=== PATIENT | female | born 1940 | race Caucasian/White ===

== ENCOUNTER 2017-12-01 16:42 | Emergency (ER) | payer MEDICARE ==
[~2017-12-01] VITALS: Ht 170.2 cm; Wt 75.8 kg
[~2017-12-01 16:42] MED LIST: BUPR150T2 PO; CITA20 PO; CLON1 PO
[2017-12-01] MEDS ORDERED: Synthroid50 MCG (16:54)
[2017-12-01] MEDS ORDERED: PRAM.125 PO (16:54)
[2017-12-01 17:30] LABS: BASOPHILS ABSOLUTE AUTO 0.04 K/mm3 (0.00-0.23); BASOPHILS PERCENT AUTO 1 % (0-2); EOSINOPHILS ABSOLUTE AUTO 0.06 K/mm3 (0.00-0.68); EOSINOPHILS PERCENT AUTO 1 % (0-6); Hematocrit 39.9 % (33.0-51.0); Hemoglobin 12.6 g/dL (11.5-16.0); IMMATURE GRAN ABSOLUTE AUTO 0.01 K/mm3 (0.00-0.10); IMMATURE GRAN PERCENT AUTO 0 % (0-1); LYMPHOCYTES ABSOLUTE AUTO 1.55 K/mm3 (0.84-5.20); LYMPHOCYTES PERCENT AUTO 33 % (21-46); MONOCYTES ABSOLUTE AUTO 0.51 K/mm3 (0.16-1.47); MONOCYTES PERCENT AUTO 11 % (4-13); Mean Corpuscular HGB Conc 31.6 g/dL (31.5-36.5); Mean Corpuscular Volume 92 fL (80-100); Mean Platelet Volume 10.5 fL (9.1-12.4); NEUTROPHILS ABSOLUTE AUTO 2.51 K/mm3 (1.96-9.15); NEUTROPHILS PERCENT AUTO 54 % (41-73); Platelet Count 212 K/mm3 (150-400); RDW Coefficient Variation 13.4 % (11.7-14.2); RDW Standard Deviation 45.8 fL (35.1-46.3); Red Blood Cell Count 4.34 M/mm3 (3.80-5.20); White Blood Cell Count 4.68 K/mm3 (4.00-11.30)
[2017-12-01 17:52] LABS: Troponin I <0.015 ng/mL (0.000-0.040)
[2017-12-01 17:55] LABS: Alanine Aminotransfer (ALT/SGP 14 U/L (12-78); Albumin, Blood 3.7 g/dL (3.4-5.0); Alk Phos 88 U/L (50-136); Aspartate Aminotrans (AST/SGOT 20 U/L (12-37); Bilirubin, Total 0.3 mg/dL (0.1-1.0); Blood Urea Nitrogen 19 mg/dL (8-24); Bun/Creatinine Ratio 21.2 (12.0-20.0); CO2, Blood 26 mmol/L (21-32); Calcium, Blood 8.8 mg/dL (8.5-10.1); Globulin, Blood 3.7 g/dL (2.2-4.0); Glomerular Filtration Rate >60 (60-); Glucose, Blood 88 mg/dL (70-99); Total Protein, Blood 7.4 g/dL (6.4-8.2)
[2017-12-01 18:34] LABS: Anion Gap 10 mmol/L (6-16); Chloride, Blood 106 mmol/L (98-108); Potassium, Blood 4.2 mmol/L (3.5-5.5); Sodium, Blood 142 mmol/L (136-145)
== END 2017-12-01 21:19 | disposition home or self-care (01) ==
LOC: ER 16:42
PROVIDERS: Emergency Medicine
DX: R07.9 Chest pain, unspecified (principal); E78.5 Hyperlipidemia, unspecified; E03.9 Hypothyroidism, unspecified; F32.9 Major depressive disorder, single episode, unspecified; Z79.899 Other long term (current) drug therapy
CPT/HCPCS: 36415; 71046; 80053; 83880; 84484; 85025; 93005; 93010; 99285-25

== ENCOUNTER 2018-01-08 06:06 | Day surgery (SDC) | payer MEDICARE ==
[2018-01-07 10:19] LABS: BASOPHILS ABSOLUTE AUTO 0.07 K/mm3 (0.00-0.23); BASOPHILS PERCENT AUTO 1 % (0-2); EOSINOPHILS ABSOLUTE AUTO 0.17 K/mm3 (0.00-0.68); EOSINOPHILS PERCENT AUTO 3 % (0-6); Hematocrit 40.4 % (33.0-51.0); Hemoglobin 13.1 g/dL (11.5-16.0); IMMATURE GRAN ABSOLUTE AUTO 0.04 K/mm3 (0.00-0.10); IMMATURE GRAN PERCENT AUTO 1 % (0-1); LYMPHOCYTES PERCENT AUTO 25 % (21-46); MONOCYTES ABSOLUTE AUTO 0.66 K/mm3 (0.16-1.47); MONOCYTES PERCENT AUTO 11 % (4-13); Mean Corpuscular HGB 29.5 pg (26.0-34.0); Mean Corpuscular HGB Conc 32.4 g/dL (31.5-36.5); Mean Corpuscular Volume 91 fL (80-100); Mean Platelet Volume 10.7 fL (9.1-12.4); NEUTROPHILS ABSOLUTE AUTO 3.76 K/mm3 (1.96-9.15); NEUTROPHILS PERCENT AUTO 60 % (41-73); Platelet Count 201 K/mm3 (150-400); RDW Coefficient Variation 13.2 % (11.7-14.2); RDW Standard Deviation 44.4 fL (35.1-46.3); Red Blood Cell Count 4.44 M/mm3 (3.80-5.20)
[2018-01-07 10:32] LABS: International Normalized Ratio 0.97
[2018-01-07 10:49] LABS: Bun/Creatinine Ratio 20.4 (12.0-20.0); Calcium, Blood 8.3 mg/dL (8.5-10.1); Creatinine, Blood 1.03 mg/dL (0.40-1.00); Potassium, Blood 4.3 mmol/L (3.5-5.5)
[~2018-01-08] VITALS: Ht 170.2 cm; Wt 77.0 kg
[~2018-01-08 06:06] MED LIST changes: +ATOR40TA PO; +Aspirin EC81 MG PO; +CLOP75 PO; +ESCI20 PO; +ISOMON20 PO; +METO25 PO; +NIACIN ER500 MG PO; +Nitroglycerin0.4 MG SL; +PRAM.125 PO; +Synthroid50 MCG
[2018-01-08] MEDS ORDERED: MAGOXI400 PO (06:40)
[2018-01-08] MEDS ORDERED: CLON.5 PO (06:40)
== END 2018-01-08 11:05 | disposition home or self-care (01) ==
LOC: MHTC 06:06
PROC: B2111ZZ Fluoroscopy of Multiple Coronary Arteries using Low Osmolar Contrast (ICD-10-PCS; principal; 2018-01-08)
DX: I25.119 Atherosclerotic heart disease of native coronary artery with unspecified angina pectoris (principal); G20 Parkinson's disease; I10 Essential (primary) hypertension; E78.5 Hyperlipidemia, unspecified; G89.29 Other chronic pain; M54.5 Low back pain; Z79.899 Other long term (current) drug therapy; Z79.82 Long term (current) use of aspirin; Z88.8 Allergy status to other drugs, medicaments and biological substances
CPT/HCPCS: 36415; 80048; 85025; 85610; 93454; 99152; 99153; C1769; C1894; J1644; J2250; J3010; J7030; Q9967

== ENCOUNTER 2018-06-04 18:49 | Emergency (ER) | payer MEDICARE ==
[~2018-06-04] VITALS: Ht 170.2 cm; Wt 76.2 kg
[~2018-06-04 18:49] MED LIST changes: +BUPR150ER PO; +CLON.5 PO; +FURO40 PO; +HYDR1TAB94 PO; +Hydrocodone-Ap1 EA23 PO; +LATANOPROST2.5 ML; +MAGOXI400 PO; +POTASSIUM CHLO20 MEQ PO; +PRAM.5 PO; +VITAMINS
[2018-06-04 19:25] LABS: BASOPHILS ABSOLUTE AUTO 0.05 K/mm3 (0.00-0.23); BASOPHILS PERCENT AUTO 1 % (0-2); EOSINOPHILS ABSOLUTE AUTO 0.12 K/mm3 (0.00-0.68); EOSINOPHILS PERCENT AUTO 2 % (0-6); Hematocrit 39.1 % (33.0-51.0); Hemoglobin 12.5 g/dL (11.5-16.0); IMMATURE GRAN ABSOLUTE AUTO 0.01 K/mm3 (0.00-0.10); IMMATURE GRAN PERCENT AUTO 0 % (0-1); LYMPHOCYTES ABSOLUTE AUTO 1.47 K/mm3 (0.84-5.20); LYMPHOCYTES PERCENT AUTO 28 % (21-46); MONOCYTES ABSOLUTE AUTO 0.57 K/mm3 (0.16-1.47); MONOCYTES PERCENT AUTO 11 % (4-13); Mean Corpuscular HGB 29.4 pg (26.0-34.0); Mean Corpuscular Volume 92 fL (80-100); Mean Platelet Volume 10.6 fL (9.1-12.4); NEUTROPHILS ABSOLUTE AUTO 3.06 K/mm3 (1.96-9.15); NEUTROPHILS PERCENT AUTO 58 % (41-73); Platelet Count 188 K/mm3 (150-400); RDW Coefficient Variation 14.4 % (11.7-14.2); RDW Standard Deviation 48.4 fL (35.1-46.3); Red Blood Cell Count 4.25 M/mm3 (3.80-5.20); White Blood Cell Count 5.28 K/mm3 (4.00-11.30)
[2018-06-04 19:55] LABS: Alanine Aminotransfer (ALT/SGP 18 U/L (12-78); Albumin, Blood 3.9 g/dL (3.4-5.0); Albumin/Globulin Ratio 1.1 (0.8-1.8); Alk Phos 91 U/L (50-136); Anion Gap 6 mmol/L (6-16); Aspartate Aminotrans (AST/SGOT 22 U/L (12-37); Bilirubin, Total 0.3 mg/dL (0.1-1.0); Blood Urea Nitrogen 22 mg/dL (8-24); Bun/Creatinine Ratio 23.4 (12.0-20.0); CO2, Blood 27 mmol/L (21-32); Calcium, Blood 8.7 mg/dL (8.5-10.1); Chloride, Blood 109 mmol/L (98-108); Creatinine, Blood 0.94 mg/dL (0.40-1.00); Globulin, Blood 3.5 g/dL (2.2-4.0); Glomerular Filtration Rate >60 (60-); Glucose, Blood 105 mg/dL (70-99); Potassium, Blood 3.9 mmol/L (3.5-5.5); Sodium, Blood 142 mmol/L (136-145); Total Protein, Blood 7.4 g/dL (6.4-8.2)
== END 2018-06-04 22:40 | disposition home or self-care (01) ==
LOC: ER 18:49
PROVIDERS: Emergency Medicine
DX: R07.9 Chest pain, unspecified (principal); Z88.8 Allergy status to other drugs, medicaments and biological substances; Z79.899 Other long term (current) drug therapy; Z79.82 Long term (current) use of aspirin; G20 Parkinson's disease
CPT/HCPCS: 36415; 71046; 80053; 84484; 85025; 93005; 93010; 99285-25

== ENCOUNTER 2018-12-11 16:14 | Emergency (ER) | payer MEDICARE ==
[~2018-12-11] VITALS: Ht 170.2 cm; Wt 76.7 kg
== END 2018-12-11 19:40 | disposition home or self-care (01) ==
LOC: ER 16:14
DX: S01.01XA Laceration without foreign body of scalp, initial encounter (principal); S10.93XA Contusion of unspecified part of neck, initial encounter; G20 Parkinson's disease; W18.30XA Fall on same level, unspecified, initial encounter
CPT/HCPCS: 12002; 70450; 72125; 90471; 90714; 99283-25

== ENCOUNTER 2020-01-05 15:09 | Emergency (ER) | payer OTHER ==
[~2020-01-05] VITALS: Ht 170.2 cm; Wt 73.0 kg
[2020-01-05 15:38] LABS: BASOPHILS ABSOLUTE AUTO 0.04 K/mm3 (0.00-0.23); BASOPHILS PERCENT AUTO 1 % (0-2); EOSINOPHILS ABSOLUTE AUTO 0.06 K/mm3 (0.00-0.68); EOSINOPHILS PERCENT AUTO 1 % (0-6); Hematocrit 39.1 % (33.0-51.0); Hemoglobin 12.5 g/dL (11.5-16.0); IMMATURE GRAN ABSOLUTE AUTO 0.02 K/mm3 (0.00-0.10); IMMATURE GRAN PERCENT AUTO 0 % (0-1); LYMPHOCYTES ABSOLUTE AUTO 1.16 K/mm3 (0.84-5.20); LYMPHOCYTES PERCENT AUTO 19 % (21-46); MONOCYTES ABSOLUTE AUTO 0.82 K/mm3 (0.16-1.47); MONOCYTES PERCENT AUTO 14 % (4-13); Mean Corpuscular HGB 30.5 pg (26.0-34.0); Mean Corpuscular Volume 95 fL (80-100); Mean Platelet Volume 11.7 fL (9.1-12.4); NEUTROPHILS ABSOLUTE AUTO 3.97 K/mm3 (1.96-9.15); NEUTROPHILS PERCENT AUTO 65 % (41-73); Platelet Count 153 K/mm3 (150-400); RDW Standard Deviation 45.8 fL (35.1-46.3); White Blood Cell Count 6.07 K/mm3 (4.00-11.30)
[2020-01-05 16:13] LABS: Alanine Aminotransfer (ALT/SGP 15 U/L (12-78); Albumin, Blood 3.4 g/dL (3.4-5.0); Alk Phos 89 U/L (50-136); Anion Gap 4 mmol/L (6-16); Aspartate Aminotrans (AST/SGOT 17 U/L (12-37); Bilirubin, Total 0.6 mg/dL (0.1-1.0); Blood Urea Nitrogen 26 mg/dL (8-24); Bun/Creatinine Ratio 24.8 (12.0-20.0); CO2, Blood 28 mmol/L (21-32); Calcium, Blood 8.7 mg/dL (8.5-10.1); Chloride, Blood 110 mmol/L (98-108); Creatinine, Blood 1.05 mg/dL (0.40-1.00); Globulin, Blood 3.3 g/dL (2.2-4.0); Glomerular Filtration Rate 54 (60-); Glucose, Blood 108 mg/dL (70-99); Potassium, Blood 4.3 mmol/L (3.5-5.5); Sodium, Blood 142 mmol/L (136-145); Total Protein, Blood 6.7 g/dL (6.4-8.2); Troponin I <0.015 ng/mL (0.000-0.040)
== END 2020-01-05 18:21 | disposition home or self-care (01) ==
LOC: ER 15:09
PROVIDERS: Physician Assistant
DX: R07.9 Chest pain, unspecified (principal); Z88.8 Allergy status to other drugs, medicaments and biological substances; Z79.82 Long term (current) use of aspirin; Z79.899 Other long term (current) drug therapy; G20 Parkinson's disease
CPT/HCPCS: 36415; 71046; 80053; 84484; 85025; 93005; 93010; 99285-25

== ENCOUNTER 2020-11-14 17:40 | Observation (INO) | payer OTHER ==
[~2020-11-14] VITALS: Ht 170.2 cm; Wt 74.5 kg
[~2020-11-14 17:40] MED LIST changes: -LATANOPROST2.5 ML; +LATANOPROST2.5 ML BOTHEYES; +LEVSOD75 PO; -Synthroid50 MCG
[2020-11-14] MEDS ORDERED: CLOP75 PO (18:07)
[2020-11-14 18:27] LABS: BASOPHILS ABSOLUTE AUTO 0.03 K/mm3 (0.00-0.23); BASOPHILS PERCENT AUTO 1 % (0-2); EOSINOPHILS ABSOLUTE AUTO 0.11 K/mm3 (0.00-0.68); EOSINOPHILS PERCENT AUTO 2 % (0-6); Hemoglobin 12.8 g/dL (11.5-16.0); IMMATURE GRAN ABSOLUTE AUTO 0.03 K/mm3 (0.00-0.10); IMMATURE GRAN PERCENT AUTO 1 % (0-1); LYMPHOCYTES ABSOLUTE AUTO 1.24 K/mm3 (0.84-5.20); LYMPHOCYTES PERCENT AUTO 20 % (21-46); MONOCYTES ABSOLUTE AUTO 0.62 K/mm3 (0.16-1.47); MONOCYTES PERCENT AUTO 10 % (4-13); Mean Corpuscular HGB 30.2 pg (26.0-34.0); Mean Corpuscular HGB Conc 32.8 g/dL (31.5-36.5); Mean Corpuscular Volume 92 fL (80-100); Mean Platelet Volume 12.6 fL (9.1-12.4); NEUTROPHILS ABSOLUTE AUTO 4.18 K/mm3 (1.96-9.15); NEUTROPHILS PERCENT AUTO 67 % (41-73); Platelet Count 141 K/mm3 (150-400); RDW Coefficient Variation 13.2 % (11.7-14.2); RDW Standard Deviation 44.5 fL (35.1-46.3); Red Blood Cell Count 4.24 M/mm3 (3.80-5.20); White Blood Cell Count 6.21 K/mm3 (4.00-11.30)
[2020-11-14 18:43] LABS: Alanine Aminotransfer (ALT/SGP 11 U/L (12-78); Albumin, Blood 3.4 g/dL (3.4-5.0); Alk Phos 84 U/L (50-136); Anion Gap 6 mmol/L (6-16); Aspartate Aminotrans (AST/SGOT 17 U/L (12-37); Bilirubin, Total 0.5 mg/dL (0.1-1.0); Blood Urea Nitrogen 23 mg/dL (8-24); Bun/Creatinine Ratio 21.7 (12.0-20.0); CO2, Blood 28 mmol/L (21-32); Calcium, Blood 8.6 mg/dL (8.5-10.1); Chloride, Blood 108 mmol/L (98-108); Creatinine, Blood 1.06 mg/dL (0.40-1.00); Globulin, Blood 3.4 g/dL (2.2-4.0); Glomerular Filtration Rate 53 (60-); Glucose, Blood 121 mg/dL (70-99); Potassium, Blood 4.3 mmol/L (3.5-5.5); Sodium, Blood 142 mmol/L (136-145); Total Protein, Blood 6.8 g/dL (6.4-8.2); Troponin I <0.015 ng/mL (0.000-0.040)
[2020-11-14] MEDS ORDERED: SYNTHROID50 MC2 PO (19:23)
[2020-11-14] MEDS ORDERED: PRAMIPEXOLE0.125 M1 PO (19:24)
[2020-11-14] MEDS ORDERED: CLON.5 PO (19:24)
[2020-11-14] MEDS ORDERED: BUPR150ER PO ×2 (19:25→23:32)
[2020-11-14] MEDS ORDERED: NITR.4SL SL (19:26)
[2020-11-14] MEDS ORDERED: MIRALAX17 GM PO (21:09)
[2020-11-14] MEDS ORDERED: Norco 5-325 Ta1 EACH PO (23:29)
[2020-11-14] MEDS ORDERED: ATOR40TA PO (23:30)
[2020-11-14] MEDS ORDERED: POTA10T PO (23:31)
[2020-11-14] MEDS ORDERED: FURO40 PO (23:33)
[2020-11-14] MEDS ORDERED: ESCI20 PO (23:33)
[2020-11-15 01:37] LABS: BASOPHILS ABSOLUTE AUTO 0.05 K/mm3 (0.00-0.23); BASOPHILS PERCENT AUTO 1 % (0-2); EOSINOPHILS ABSOLUTE AUTO 0.15 K/mm3 (0.00-0.68); EOSINOPHILS PERCENT AUTO 2 % (0-6); Hematocrit 40.3 % (33.0-51.0); IMMATURE GRAN ABSOLUTE AUTO 0.02 K/mm3 (0.00-0.10); IMMATURE GRAN PERCENT AUTO 0 % (0-1); LYMPHOCYTES ABSOLUTE AUTO 1.54 K/mm3 (0.84-5.20); LYMPHOCYTES PERCENT AUTO 21 % (21-46); MONOCYTES ABSOLUTE AUTO 0.68 K/mm3 (0.16-1.47); MONOCYTES PERCENT AUTO 9 % (4-13); Mean Corpuscular HGB 29.7 pg (26.0-34.0); Mean Corpuscular HGB Conc 32.3 g/dL (31.5-36.5); Mean Corpuscular Volume 92 fL (80-100); NEUTROPHILS ABSOLUTE AUTO 4.77 K/mm3 (1.96-9.15); NEUTROPHILS PERCENT AUTO 66 % (41-73); Platelet Count 139 K/mm3 (150-400); RDW Coefficient Variation 13.2 % (11.7-14.2); RDW Standard Deviation 44.5 fL (35.1-46.3); Red Blood Cell Count 4.38 M/mm3 (3.80-5.20); White Blood Cell Count 7.21 K/mm3 (4.00-11.30)
[2020-11-15 01:58] LABS: Albumin, Blood 3.2 g/dL (3.4-5.0); Bilirubin, Total 0.5 mg/dL (0.1-1.0); Bun/Creatinine Ratio 22.5 (12.0-20.0); Calcium, Blood 8.2 mg/dL (8.5-10.1); Creatinine, Blood 0.98 mg/dL (0.40-1.00); Globulin, Blood 3.3 g/dL (2.2-4.0); Potassium, Blood 3.5 mmol/L (3.5-5.5); Total Protein, Blood 6.5 g/dL (6.4-8.2)
[2020-11-15 02:05] LABS: CPK Creatine Kinase 48 U/L (26-193); Troponin I <0.015 ng/mL (0.000-0.040)
--- NOTE | 2020-11-15 06:21 | NUR ---
SUMMARY PT ARRIVED TO FLOOR IN NO DISTRESS. PT HAS REPORTED SOME CX PRESSURE. PT PRIMARY COMPLAINT IS RIGHT SHOULDER PAIN FROM UNKNOWN TIME INJURY. PT DENIES SOB. PT HAS BEEN TX FOR DISCOMFORT PER EMAR W/ RELIEF. PT CURRENTLY AWAKE IN NO DISTRESS. CALL LIGHT IN REACH.
[2020-11-15 11:15] LABS: CPK Creatine Kinase 52 U/L (26-193); Troponin I <0.015 ng/mL (0.000-0.040)
--- NOTE | 2020-11-15 16:46 | NUR ---
Echocardiogram completed.
--- NOTE | 2020-11-15 17:58 | NUR ---
SHIFT SUMMARY- PT IS A/O, PLESANT AND COOPERATIVE. SHE IS EATING AND DRINKING WELL. SHE WILL RECIEVE A CARDIAC STRESS TEST TOMORROW. CARDIOLOGY WAS CONSULTED. SHE IS AMBULATING TO THE RESTROOM. HER BED IS IN THE LOW POSTION AND CALL LIGHT IS WITHIN REACH.
--- NOTE | 2020-11-16 05:20 | NUR ---
SUMMARY PT DENIES CX PAIN OR SOB. PT CONTINUES TO C/O R SHOULDER DISCOMFORT. PT HAD UNEVENTFUL NIGHT. PT HAS BEEN NPO SINCE 0000HRS. PT CURRENTLY SLEEPING IN NO DISTRESS. CALL LIGHT IN REACH.
--- NOTE | 2020-11-16 14:02 | NUR ---
PT CALLED STATING SHE IS FEELING 7/10 SHARP HEAVY CHEST PAIN LOCATED UNDER HER LEFT BREAST. NITRO X3 AND FENTANYL PROVIDED AT THIS TIME. PT DENIES ANY RADIATING, NAUSEA, OR SOB. VS ARE STABLE. CRISTY UPDATED, STAT EKG AND TROPONIN ORDERED. WILL UPDATE CRISTY NEEDED AND CONTINUE TO MONITOR PT. CHARGE NURSES AWARE.
--- NOTE | 2020-11-16 17:17 | NUR ---
SHIFT SUMMARY PT A&O, COOPERATIVE c CARE, VSS, AMBULATING WELL. PT DID REPORT CHEST PAIN THIS AFTERNOON AND WAS TREATED ACCORDINGLY (SEE PREVIOUS NOTE). PT IS NO LONGER EXPERIENCING THIS PAIN. PT DOES REPORT R SHOULDER PAIN, X RAY ORDERED AND TO BE COMPLETED. FIRST PORTION OF STRESS TEST COMPLETED THIS AM, 2ND PART TO BE DONE TOMORROW. PT MAY EAT BREAKFAST ON 11/17/20 BUT NEEDS TO BE NPO AFTER THAT. IMDUR ALSO NEEDS TO BE HELD 11/17/20. PT IS CURRENTLY RESTING IN BED VISITING c HER DAUGHTER. CALL LIGHT WITHIN REACH AND CALLS APPROPRIATELY.
[2020-11-17] MEDS ORDERED: Isosorbide Mono30 MG PO (17:58)
--- NOTE | 2020-11-17 18:10 | NUR ---
DISCHARGE SUMMARY PT DISCHARGED @ APPROX 1810 VIA WHEELCHAIR BY DALIA. DISCHARGE INSTRUCTIONS REVIEWED c PT, STATED TO PT IT IS IMPORTANT TO CALL FRIDAY TO MAKE FOLLOW UP APPOINTMENTS SINCE OFFICES WERE CLOSED. PT STATES SHE ALREADY HAS AN APPOINTMENT WITH CARIDOLOGIST. PT HAD NO FURTHER QUESTIONS AT THIS TIME, NEW MEDS REVIEWED AND FAXED TO PREFERRED PHARMACY. IV REMOVED AND SITE APPEAR WNL.
== END 2020-11-17 18:20 | disposition home or self-care (01) ==
LOC: ER 17:40 → ERHOLD 17:41 → MEDS 17:41
PROVIDERS: Emergency Medicine; ADMIT Internal Medicine
DX: R07.89 Other chest pain (principal); I25.10 Atherosclerotic heart disease of native coronary artery without angina pectoris; M77.8 Other enthesopathies, not elsewhere classified; G20 Parkinson's disease; E03.9 Hypothyroidism, unspecified; E78.5 Hyperlipidemia, unspecified; D69.6 Thrombocytopenia, unspecified; I25.2 Old myocardial infarction; F32.9 Major depressive disorder, single episode, unspecified; Z95.1 Presence of aortocoronary bypass graft; Z88.8 Allergy status to other drugs, medicaments and biological substances; Z79.82 Long term (current) use of aspirin; Z79.02 Long term (current) use of antithrombotics/antiplatelets
CPT/HCPCS: 36415; 71045; 73030; 78452; 80053; 82550; 84484; 85025; 93005; 93010; 93017; 93308; 93321; 96372; 96374; 96376; 99285-25; A9270; A9500; G0378; J0706; J1650; J2785; J3010; J7030

== ENCOUNTER 2021-04-20 17:23 | Inpatient (IN) | payer OTHER ==
[~2021-04-20] VITALS: Ht 170.2 cm; Wt 75.9 kg
[~2021-04-20 17:23] MED LIST changes: +Isosorbide Mono30 MG PO; +MIRALAX17 GM PO; +NITR.4SL SL; +Norco 5-325 Ta1 EACH PO; +POTA10T PO; +PRAMIPEXOLE0.125 M1 PO; +SYNTHROID50 MC2 PO
[2021-04-20 17:51] LABS: BASOPHILS ABSOLUTE AUTO 0.05 K/mm3 (0.00-0.23); BASOPHILS PERCENT AUTO 1 % (0-2); EOSINOPHILS ABSOLUTE AUTO 0.04 K/mm3 (0.00-0.68); EOSINOPHILS PERCENT AUTO 1 % (0-6); Hematocrit 40.7 % (33.0-51.0); Hemoglobin 13.2 g/dL (11.5-16.0); IMMATURE GRAN ABSOLUTE AUTO 0.01 K/mm3 (0.00-0.10); IMMATURE GRAN PERCENT AUTO 0 % (0-1); LYMPHOCYTES ABSOLUTE AUTO 1.23 K/mm3 (0.84-5.20); LYMPHOCYTES PERCENT AUTO 28 % (21-46); MONOCYTES ABSOLUTE AUTO 0.57 K/mm3 (0.16-1.47); MONOCYTES PERCENT AUTO 13 % (4-13); Mean Corpuscular HGB 30.2 pg (26.0-34.0); Mean Corpuscular HGB Conc 32.4 g/dL (31.5-36.5); Mean Corpuscular Volume 93 fL (80-100); Mean Platelet Volume 11.6 fL (9.1-12.4); NEUTROPHILS ABSOLUTE AUTO 2.58 K/mm3 (1.96-9.15); NEUTROPHILS PERCENT AUTO 58 % (41-73); Platelet Count 163 K/mm3 (150-400); RDW Coefficient Variation 12.5 % (11.7-14.2); RDW Standard Deviation 43.4 fL (35.1-46.3); Red Blood Cell Count 4.37 M/mm3 (3.80-5.20); White Blood Cell Count 4.48 K/mm3 (4.00-11.30)
[2021-04-20 18:17] LABS: Alanine Aminotransfer (ALT/SGP 13 U/L (12-78); Albumin, Blood 3.4 g/dL (3.4-5.0); Albumin/Globulin Ratio 1.1 (0.8-1.8); Alk Phos 78 U/L (50-136); Anion Gap 5 mmol/L (6-16); Aspartate Aminotrans (AST/SGOT 22 U/L (12-37); Bilirubin, Total 0.4 mg/dL (0.1-1.0); Blood Urea Nitrogen 20 mg/dL (8-24); Bun/Creatinine Ratio 23.8 (12.0-20.0); CO2, Blood 27 mmol/L (21-32); Calcium, Blood 8.6 mg/dL (8.5-10.1); Chloride, Blood 110 mmol/L (98-108); Creatinine, Blood 0.84 mg/dL (0.40-1.00); Glomerular Filtration Rate >60 (60-); Glucose, Blood 94 mg/dL (70-99); Potassium, Blood 4.2 mmol/L (3.5-5.5); Sodium, Blood 142 mmol/L (136-145); Total Protein, Blood 6.4 g/dL (6.4-8.2)
[2021-04-20 18:31] LABS: Influenza A, PCR NEGATIVE (NEGATIVE); Influenza B, PCR NEGATIVE (NEGATIVE); Resp Syncytial Virus, PCR NEGATIVE (NEGATIVE); SARS-Cov-2 (COVID-19) PCR, MMC NEGATIVE (NEGATIVE)
[2021-04-20 21:04] LABS: Anti-Xa UFH, PHA Monitoring <0.10 IU/mL; Prothrombin Time Results 10.5 Sec (9.7-11.5)
--- NOTE | 2021-04-20 22:30 | NUR ---
ASSUMED CARE OF PATIENT AT 2140, ADMIT FROM ER. TELEMETRY NSR 60-70'S WITH AUDIBLE S3. +2 RADIALS BL, +1 PEDALS BL. TROP TRENDING UP FROM 0.070 TO 0.121. CP 5/10 RELIEVED TO 1/10 WITH 3RD NITRO. URINARY FREQUENCY AND SOME INCONTINENCE CHRONIC FOR PATIENT. PATIENTS MAP AROUND 65-75. HEPARIN BOLUS GIVEN AND HEPARIN NOW RUNNING AT 15U/KG/HR PER PHARMACY. PATIENTS VIPUL GAONA AT BEDSIDE. WILL UPDATE CHANGES OCCUR.
[2021-04-20 23:07] LABS: CHOL/HDL RATIO 2.9; Cholesterol 125 mg/dL (50-200); HDL Cholesterol 43 mg/dL (>39); LDL/HDL RATIO 1.2; Low Density Lipoprotein Chol 53 mg/dL (0-110); Triglycerides 145 mg/dL (30-160); Very Low Density Lipoprot Chol 29 mg/dL (6-32)
[2021-04-21 04:25] LABS: BASOPHILS ABSOLUTE AUTO 0.05 K/mm3 (0.00-0.23); BASOPHILS PERCENT AUTO 1 % (0-2); EOSINOPHILS ABSOLUTE AUTO 0.07 K/mm3 (0.00-0.68); EOSINOPHILS PERCENT AUTO 1 % (0-6); Hematocrit 37.8 % (33.0-51.0); Hemoglobin 12.4 g/dL (11.5-16.0); IMMATURE GRAN ABSOLUTE AUTO 0.01 K/mm3 (0.00-0.10); IMMATURE GRAN PERCENT AUTO 0 % (0-1); LYMPHOCYTES ABSOLUTE AUTO 1.73 K/mm3 (0.84-5.20); LYMPHOCYTES PERCENT AUTO 32 % (21-46); MONOCYTES ABSOLUTE AUTO 0.66 K/mm3 (0.16-1.47); MONOCYTES PERCENT AUTO 12 % (4-13); Mean Corpuscular HGB 30.2 pg (26.0-34.0); Mean Corpuscular HGB Conc 32.8 g/dL (31.5-36.5); Mean Corpuscular Volume 92 fL (80-100); Mean Platelet Volume 11.6 fL (9.1-12.4); NEUTROPHILS ABSOLUTE AUTO 2.91 K/mm3 (1.96-9.15); NEUTROPHILS PERCENT AUTO 54 % (41-73); Platelet Count 145 K/mm3 (150-400); RDW Coefficient Variation 12.7 % (11.7-14.2); RDW Standard Deviation 43.2 fL (35.1-46.3); White Blood Cell Count 5.43 K/mm3 (4.00-11.30)
[2021-04-21 04:48] LABS: Alanine Aminotransfer (ALT/SGP 15 U/L (12-78); Albumin, Blood 3.1 g/dL (3.4-5.0); Albumin/Globulin Ratio 1.1 (0.8-1.8); Alk Phos 69 U/L (50-136); Anion Gap 5 mmol/L (6-16); Aspartate Aminotrans (AST/SGOT 14 U/L (12-37); Bilirubin, Total 0.3 mg/dL (0.1-1.0); Blood Urea Nitrogen 23 mg/dL (8-24); Bun/Creatinine Ratio 26.4 (12.0-20.0); CO2, Blood 27 mmol/L (21-32); Calcium, Blood 8.7 mg/dL (8.5-10.1); Chloride, Blood 113 mmol/L (98-108); Creatinine, Blood 0.87 mg/dL (0.40-1.00); Globulin, Blood 2.9 g/dL (2.2-4.0); Glomerular Filtration Rate >60 (60-); Glucose, Blood 79 mg/dL (70-99); Potassium, Blood 3.9 mmol/L (3.5-5.5); Sodium, Blood 145 mmol/L (136-145)
--- NOTE | 2021-04-21 17:25 | NUR ---
PT DENIES CP AT THIS TIME, PT A/O X4 ANSWERING QUESTIONS APPROPRIATELY. PT WILL GO FOR ANGIO IN THE AM AWARE THAT SHE WILL BE NPO AFTER SUNDEEP LUGO. HEPARIN INFUSING CONTINUES AT THIS TIME. PT SBA TO BATHROOM AND BACK TO BED WITHOUT ISSUES. LS DIM/CLEAR T/O.
--- NOTE | 2021-04-22 03:10 | NUR ---
ASSUMED CARE OF PATIENT AT 1900/ A/OX4. NO CP/PRESSURE. TELEMETRY NSR 60'S. HEPARIN GTT AT 10U/KG/HR. NPO AT MIDNIGHT. PATIENT STATES SHE FEELS "BACKED UP" AND WOULD LIKE AN ENEMA. ORDER WAS OBTAINED BUT WAS INFORMED PT HAS HEMORRHOIDS AND IS ON HEPARIN GTT. EXPLAINED THE RISK OF BLEEDING TO PATIENT AND SHE AGREED TO WAIT UNTIL BLEEDING ISN'T BIG OF A CONCERN. WILL UPDATE CHANGES OCCUR.
--- NOTE | 2021-04-22 19:28 | NUR ---
SHIFT SUMMARY PT A&Ox4; CALM AND COOPERATIVE WITH CARE. PT RESTING IN BED, UP WITH SBA IN ROOM. PT TO TAIL END RIDER THIS AM; RETURNED TO ROOM WITH RIGHT GROIN SITE; NO BRUISING, BLEEDING OR HEMATOMA NOTED; RECEOVERED PER ORDERS. PT DENIES PAIN, CHEST PAIN, NAUSEA AND DIZZINESS T/O SHIFT. PT REPORTS CONSTIPATION, REQUESTING ENEMA, REPROTS HAVING HEMORRHOIDS; NOTIFIED DR TATUM, NEW ORDER FOR SUPPOSITORY. VSS. NO OTHER ACUTE CHANGES NOTED. REPORT GIVEN TO ONCOMING RN.
--- NOTE | 2021-04-23 00:06 | NUR ---
ASSUMED CARE OF PT AT 1900. A/OX4. DENIES ANY CP/PRESSURE. SINUS MEAGHAN ON MONITOR WITH +2 RADIALS AND +1 PEDAL PULSES BL. R FEM SITE C/D/I. ABDOMEN IS TENDER AND HYPOACTIVE, REFLECTING CURRENT COMPLAINT OF CONSTIPATION. PRN SUPPOSITORY GIVEN WITH MILD RESULTS OF A FEW HARD PELLETS. MAINTAINS OVER 95% ON RA, CLEAR LS. WILL UPDATES CHANGES OCCUR.
[2021-04-23] MEDS ORDERED: ASPI81CH PO (10:44)
[2021-04-23] MEDS ORDERED: METO25ER PO (10:44)
--- NOTE | 2021-04-23 13:17 | NUR ---
DISCHARGE NOTE PT A&Ox4; CALM AND COOPERATIVE WITH CARE. PT RESTING IN BED DUIRNG SHIFT. UP IN ROOM IND. PT DENIES PAIN, CHEST PAIN, NAUSEA AND DIZZINESS. RIGHT GROIN SITE C/D/I; NO BRUISING, BLEEDING OR HEMATOMA NOTED. VSS. NO OTHER ACUTE CHANGES NOTED. EDUCATED PT ON DISCHARGE INSTRUCTIONS, FOLLOW UP APPOINTMENTS, WOUND CARE AND MEDICATIONS. PRESCRIPTIONS CALLED TO [facility]; ENCOURAGED THEM TO CALL PRIOR TO GOING IN TO UNSURE PRESCRIPTIONS ARE READY. PT LEFT VIA WHEELCHAIR AT APPRXI 1225.
== END 2021-04-23 12:42 | disposition home or self-care (01) | DRG 282 ==
LOC: ER 17:23 → PCU 20:45
PROVIDERS: Emergency Medicine; Student in an Organized Health Care Education/Training Program; ADMIT Internal Medicine
PROC: 3E02340 Introduction of Influenza Vaccine into Muscle, Percutaneous Approach (ICD-10-PCS; 2021-04-20)
PROC: B2181ZZ Fluoroscopy of Left Internal Mammary Bypass Graft using Low Osmolar Contrast (ICD-10-PCS; principal; 2021-04-22)
PROC: B2111ZZ Fluoroscopy of Multiple Coronary Arteries using Low Osmolar Contrast (ICD-10-PCS; 2021-04-22)
PROC: B2121ZZ Fluoroscopy of Single Coronary Artery Bypass Graft using Low Osmolar Contrast (ICD-10-PCS; 2021-04-22)
DX: I21.4 Non-ST elevation (NSTEMI) myocardial infarction (principal); G20 Parkinson's disease; H40.9 Unspecified glaucoma; I25.10 Atherosclerotic heart disease of native coronary artery without angina pectoris; Z20.822 Contact with and (suspected) exposure to COVID-19; F32.A Depression, unspecified; E78.5 Hyperlipidemia, unspecified; E03.9 Hypothyroidism, unspecified; Z88.5 Allergy status to narcotic agent; Z88.8 Allergy status to other drugs, medicaments and biological substances; Z90.49 Acquired absence of other specified parts of digestive tract; Z95.1 Presence of aortocoronary bypass graft; Z79.02 Long term (current) use of antithrombotics/antiplatelets; Z79.899 Other long term (current) drug therapy; Z23 Encounter for immunization
CPT/HCPCS: 0241U; 36415; 71045; 76937; 80053; 80061; 84439; 84443; 84484; 85025; 85347; 85520; 85610; 90686; 93005; 93010; 93306; 93455; 94762; 99152; 99153; 99285-25; A9270; C1760; C1769; C1894; G0008; J1644; J2250; J3010; J7030; Q9967

== ENCOUNTER 2021-10-08 12:57 | Emergency (ER) | payer OTHER ==
[~2021-10-08] VITALS: Ht 170.2 cm; Wt 76.2 kg
[~2021-10-08 12:57] MED LIST changes: +ASPI81CH PO; +METO25ER PO
[2021-10-08 14:20] LABS: BASOPHILS ABSOLUTE AUTO 0.05 K/mm3 (0.00-0.23); BASOPHILS PERCENT AUTO 1 % (0-2); EOSINOPHILS ABSOLUTE AUTO 0.08 K/mm3 (0.00-0.68); EOSINOPHILS PERCENT AUTO 2 % (0-6); Hematocrit 39.8 % (33.0-51.0); IMMATURE GRAN ABSOLUTE AUTO 0.01 K/mm3 (0.00-0.10); IMMATURE GRAN PERCENT AUTO 0 % (0-1); LYMPHOCYTES ABSOLUTE AUTO 0.95 K/mm3 (0.84-5.20); LYMPHOCYTES PERCENT AUTO 19 % (21-46); MONOCYTES ABSOLUTE AUTO 0.62 K/mm3 (0.16-1.47); MONOCYTES PERCENT AUTO 12 % (4-13); Mean Corpuscular HGB 30.3 pg (26.0-34.0); Mean Corpuscular HGB Conc 32.7 g/dL (31.5-36.5); Mean Corpuscular Volume 93 fL (80-100); Mean Platelet Volume 11.1 fL (9.1-12.4); NEUTROPHILS ABSOLUTE AUTO 3.32 K/mm3 (1.96-9.15); NEUTROPHILS PERCENT AUTO 66 % (41-73); Platelet Count 153 K/mm3 (150-400); RDW Coefficient Variation 13.2 % (11.7-14.2); Red Blood Cell Count 4.29 M/mm3 (3.80-5.20); White Blood Cell Count 5.03 K/mm3 (4.00-11.30)
[2021-10-08 14:58] LABS: Albumin, Blood 3.6 g/dL (3.4-5.0); Albumin/Globulin Ratio 1.2 (0.8-1.8); Bilirubin, Total 0.5 mg/dL (0.1-1.0); Bun/Creatinine Ratio 30.6 (12.0-20.0); Calcium, Blood 8.7 mg/dL (8.5-10.1); Creatinine, Blood 0.98 mg/dL (0.40-1.00); Globulin, Blood 2.9 g/dL (2.2-4.0); Potassium, Blood 4.5 mmol/L (3.5-5.5); Total Protein, Blood 6.5 g/dL (6.4-8.2)
== END 2021-10-08 17:17 | disposition home or self-care (01) ==
LOC: ER 12:57
PROVIDERS: Student in an Organized Health Care Education/Training Program
DX: R07.9 Chest pain, unspecified (principal); I25.10 Atherosclerotic heart disease of native coronary artery without angina pectoris; E03.9 Hypothyroidism, unspecified; E78.5 Hyperlipidemia, unspecified; Z95.1 Presence of aortocoronary bypass graft; Z88.8 Allergy status to other drugs, medicaments and biological substances; Z88.5 Allergy status to narcotic agent
CPT/HCPCS: 71046; 80053; 83880; 84484; 85025; 93005; 93010

== ENCOUNTER 2022-09-28 00:58 | Observation (INO) | payer OTHER ==
[~2022-09-28] VITALS: Ht 170.2 cm; Wt 78.4 kg
[2022-09-28 01:47] LABS: Albumin, Blood 3.3 g/dL (3.4-5.0); Albumin/Globulin Ratio 1.1 (0.8-1.8); Bilirubin, Total 0.3 mg/dL (0.1-1.0); Bun/Creatinine Ratio 24.3 (12.0-20.0); Calcium, Blood 8.4 mg/dL (8.5-10.1); Creatinine, Blood 1.15 mg/dL (0.40-1.00); Globulin, Blood 2.9 g/dL (2.2-4.0); Potassium, Blood 3.8 mmol/L (3.5-5.5); Total Protein, Blood 6.2 g/dL (6.4-8.2)
[2022-09-28 01:49] LABS: BASOPHILS ABSOLUTE AUTO 0.05 K/mm3 (0.00-0.23); BASOPHILS PERCENT AUTO 1 % (0-2); EOSINOPHILS ABSOLUTE AUTO 0.11 K/mm3 (0.00-0.68); EOSINOPHILS PERCENT AUTO 2 % (0-6); Hematocrit 35.9 % (33.0-51.0); Hemoglobin 11.4 g/dL (11.5-16.0); IMMATURE GRAN ABSOLUTE AUTO 0.02 K/mm3 (0.00-0.10); IMMATURE GRAN PERCENT AUTO 0 % (0-1); LYMPHOCYTES PERCENT AUTO 21 % (21-46); MONOCYTES ABSOLUTE AUTO 0.68 K/mm3 (0.16-1.47); MONOCYTES PERCENT AUTO 10 % (4-13); Mean Corpuscular HGB 30.5 pg (26.0-34.0); Mean Corpuscular HGB Conc 31.8 g/dL (31.5-36.5); Mean Corpuscular Volume 96 fL (80-100); Mean Platelet Volume 11.9 fL (9.1-12.4); NEUTROPHILS ABSOLUTE AUTO 4.54 K/mm3 (1.96-9.15); NEUTROPHILS PERCENT AUTO 67 % (41-73); Platelet Count 159 K/mm3 (150-400); RDW Coefficient Variation 13.2 % (11.7-14.2); RDW Standard Deviation 46.8 fL (35.1-46.3); Red Blood Cell Count 3.74 M/mm3 (3.80-5.20)
[2022-09-28 05:44] VITALS: BP 148/65
[2022-09-28 08:08] VITALS: BP 114/60
[2022-09-28] MEDS ORDERED: PANT40 PO (16:28)
--- NOTE | 2022-09-28 17:11 | NUR ---
DC- PT TAKEN DOWN FOR DC IN WC WITH DAUGHTER IN STABLE CONDITION. PT LEFT WITH ALL BELONGINGS.
== END 2022-09-28 16:53 | disposition home or self-care (01) ==
LOC: ER 00:58 → MEDS 00:59 → ENPENDDIS 15:51 → MEDS 16:53
PROVIDERS: Student in an Organized Health Care Education/Training Program; ADMIT Internal Medicine
DX: R07.89 Other chest pain (principal); E03.9 Hypothyroidism, unspecified; I12.9 Hypertensive chronic kidney disease with stage 1 through stage 4 chronic kidney disease, or unspecified chronic kidney disease; N18.30 Chronic kidney disease, stage 3 unspecified; G20 Parkinson's disease; F32.9 Major depressive disorder, single episode, unspecified; I25.10 Atherosclerotic heart disease of native coronary artery without angina pectoris; Z95.1 Presence of aortocoronary bypass graft; Z88.8 Allergy status to other drugs, medicaments and biological substances; Z79.82 Long term (current) use of aspirin; Z79.02 Long term (current) use of antithrombotics/antiplatelets; Z79.899 Other long term (current) drug therapy
CPT/HCPCS: 36415; 71045; 78452; 80053; 83880; 84484; 85025; 93005; 93010; 93017; 99285-25; A9270; A9500; G0378; J0280; J2785

== ENCOUNTER 2022-12-28 15:21 | Emergency (ER) | payer OTHER ==
[~2022-12-28] VITALS: Ht 170.2 cm; Wt 79.4 kg
[~2022-12-28 15:21] MED LIST changes: +PANT40 PO
[2022-12-28 15:57] LABS: BASOPHILS ABSOLUTE AUTO 0.05 K/mm3 (0.00-0.23); BASOPHILS PERCENT AUTO 1 % (0-2); EOSINOPHILS PERCENT AUTO 2 % (0-6); Hematocrit 41.8 % (33.0-51.0); Hemoglobin 13.5 g/dL (11.5-16.0); IMMATURE GRAN ABSOLUTE AUTO 0.02 K/mm3 (0.00-0.10); IMMATURE GRAN PERCENT AUTO 0 % (0-1); LYMPHOCYTES ABSOLUTE AUTO 1.25 K/mm3 (0.84-5.20); LYMPHOCYTES PERCENT AUTO 24 % (21-46); MONOCYTES PERCENT AUTO 12 % (4-13); Mean Corpuscular HGB 29.9 pg (26.0-34.0); Mean Corpuscular HGB Conc 32.3 g/dL (31.5-36.5); Mean Corpuscular Volume 93 fL (80-100); Mean Platelet Volume 11.7 fL (9.1-12.4); NEUTROPHILS ABSOLUTE AUTO 3.18 K/mm3 (1.96-9.15); NEUTROPHILS PERCENT AUTO 61 % (41-73); Platelet Count 164 K/mm3 (150-400); RDW Coefficient Variation 12.9 % (11.7-14.2); RDW Standard Deviation 44.2 fL (35.1-46.3); Red Blood Cell Count 4.52 M/mm3 (3.80-5.20)
[2022-12-28 16:19] LABS: Albumin, Blood 3.9 g/dL (3.4-5.0); Albumin/Globulin Ratio 1.1 (0.8-1.8); Bilirubin, Total 0.6 mg/dL (0.1-1.0); Bun/Creatinine Ratio 16.7 (12.0-20.0); Creatinine, Blood 1.08 mg/dL (0.40-1.00); Globulin, Blood 3.7 g/dL (2.2-4.0); Potassium, Blood 4.3 mmol/L (3.5-5.5); Total Protein, Blood 7.6 g/dL (6.4-8.2)
[2022-12-28 18:30] VITALS: BP 133/55
== END 2022-12-28 19:03 | disposition home or self-care (01) ==
LOC: ER 15:21
PROVIDERS: Physician Assistant
DX: R00.1 Bradycardia, unspecified (principal); F15.90 Other stimulant use, unspecified, uncomplicated; Z88.8 Allergy status to other drugs, medicaments and biological substances; Z79.899 Other long term (current) drug therapy; I25.10 Atherosclerotic heart disease of native coronary artery without angina pectoris; E03.9 Hypothyroidism, unspecified
CPT/HCPCS: 71046; 80053; 83690; 83880; 84484; 85025; 93005; 93010; 99284-25

== ENCOUNTER 2023-03-15 20:03 | Observation (INO) | payer OTHER ==
[~2023-03-15] VITALS: Ht 170.2 cm; Wt 77.6 kg
[2023-03-15 20:35] LABS: BASOPHILS ABSOLUTE AUTO 0.04 K/mm3 (0.00-0.23); BASOPHILS PERCENT AUTO 1 % (0-2); EOSINOPHILS ABSOLUTE AUTO 0.11 K/mm3 (0.00-0.68); EOSINOPHILS PERCENT AUTO 2 % (0-6); Hemoglobin 12.6 g/dL (11.5-16.0); IMMATURE GRAN ABSOLUTE AUTO 0.02 K/mm3 (0.00-0.10); IMMATURE GRAN PERCENT AUTO 0 % (0-1); LYMPHOCYTES ABSOLUTE AUTO 1.54 K/mm3 (0.84-5.20); LYMPHOCYTES PERCENT AUTO 26 % (21-46); MONOCYTES ABSOLUTE AUTO 0.71 K/mm3 (0.16-1.47); MONOCYTES PERCENT AUTO 12 % (4-13); Mean Corpuscular HGB 29.9 pg (26.0-34.0); Mean Corpuscular HGB Conc 32.3 g/dL (31.5-36.5); Mean Corpuscular Volume 93 fL (80-100); Mean Platelet Volume 11.5 fL (9.1-12.4); NEUTROPHILS ABSOLUTE AUTO 3.63 K/mm3 (1.96-9.15); NEUTROPHILS PERCENT AUTO 60 % (41-73); Platelet Count 172 K/mm3 (150-400); RDW Coefficient Variation 13.6 % (11.7-14.2); RDW Standard Deviation 46.4 fL (35.1-46.3); Red Blood Cell Count 4.21 M/mm3 (3.80-5.20); White Blood Cell Count 6.05 K/mm3 (4.00-11.30)
[2023-03-15 21:16] LABS: Albumin, Blood 3.7 g/dL (3.4-5.0); Albumin/Globulin Ratio 1.1 (0.8-1.8); Bilirubin, Total 0.4 mg/dL (0.1-1.0); Bun/Creatinine Ratio 21.2 (12.0-20.0); Calcium, Blood 8.8 mg/dL (8.5-10.1); Creatinine, Blood 1.18 mg/dL (0.40-1.00); Globulin, Blood 3.5 g/dL (2.2-4.0); Total Protein, Blood 7.2 g/dL (6.4-8.2)
[2023-03-16] MEDS ORDERED: LOSA25 PO (00:39)
[2023-03-16] MEDS ORDERED: FURO40 PO (00:41)
[2023-03-16 01:03] VITALS: BP 168/62
[2023-03-16 01:43] VITALS: BP 139/53
--- NOTE | 2023-03-16 05:18 | NUR ---
ADMISSION NOTE/SHIFT SUMMARY PATIENT ARRIVED TO UNIT FROM ED AT 0100, RIGHT AT TIME CHANGE, ACCOMPANIED BY DAUGHTER. ORIENTED PATIENT TO UNIT, ROOM, AND CALL LIGHT FUNCTIONS. IS A/Ox4, APPEARES ANXIOUS, C/O ONGOING CHEST PAIN/TIGHTNESS. STATES SHE TOOK NITRO ABOUT 1930 PRIOR TO COMING TO ED, RECEIVED FENT 50MCG 1 HR PRIOR TO TRANSFER TO FLOOR. CONTINUED TO C/O SEVER CHEST PAIN, PROVIDER IN TO SEE PATIENT, RECEIVED ADDITIONAL SL NITRO X3 PER ORDER. BP CAME BACK DOWN, PT STATES SOME RELIEF ACHIEVED. DENIES SOB/DIFFICULTY BREATHING. PATIENT APPEARS TO BE ASLEEP IN BED RESTING COMFORTABLY AT THIS TIME, IN NO ACUTE DISTRESS. BED LOCKED, CALL LIGHT WITHIN REACH.
[2023-03-16 07:49] VITALS: BP 100/66
[2023-03-16 08:57] LABS: BASOPHILS ABSOLUTE AUTO 0.05 K/mm3 (0.00-0.23); BASOPHILS PERCENT AUTO 1 % (0-2); EOSINOPHILS ABSOLUTE AUTO 0.09 K/mm3 (0.00-0.68); EOSINOPHILS PERCENT AUTO 2 % (0-6); Hematocrit 38.6 % (33.0-51.0); Hemoglobin 12.2 g/dL (11.5-16.0); IMMATURE GRAN ABSOLUTE AUTO 0.01 K/mm3 (0.00-0.10); IMMATURE GRAN PERCENT AUTO 0 % (0-1); LYMPHOCYTES ABSOLUTE AUTO 1.59 K/mm3 (0.84-5.20); LYMPHOCYTES PERCENT AUTO 36 % (21-46); MONOCYTES ABSOLUTE AUTO 0.51 K/mm3 (0.16-1.47); MONOCYTES PERCENT AUTO 11 % (4-13); Mean Corpuscular HGB 29.9 pg (26.0-34.0); Mean Corpuscular HGB Conc 31.6 g/dL (31.5-36.5); Mean Corpuscular Volume 95 fL (80-100); Mean Platelet Volume 11.6 fL (9.1-12.4); NEUTROPHILS ABSOLUTE AUTO 2.22 K/mm3 (1.96-9.15); NEUTROPHILS PERCENT AUTO 50 % (41-73); Platelet Count 148 K/mm3 (150-400); RDW Coefficient Variation 13.6 % (11.7-14.2); RDW Standard Deviation 47.6 fL (35.1-46.3); Red Blood Cell Count 4.08 M/mm3 (3.80-5.20); White Blood Cell Count 4.47 K/mm3 (4.00-11.30)
[2023-03-16 09:22] LABS: Albumin, Blood 3.4 g/dL (3.4-5.0); Albumin/Globulin Ratio 1.1 (0.8-1.8); Bilirubin, Total 0.4 mg/dL (0.1-1.0); Bun/Creatinine Ratio 15.3 (12.0-20.0); Calcium, Blood 8.5 mg/dL (8.5-10.1); Creatinine, Blood 1.18 mg/dL (0.40-1.00); Globulin, Blood 3.2 g/dL (2.2-4.0); Total Protein, Blood 6.6 g/dL (6.4-8.2)
[2023-03-16 11:05] VITALS: BP 145/54
[2023-03-16 16:19] VITALS: BP 124/60
--- NOTE | 2023-03-16 18:19 | NUR ---
PT IS A/OX4, PLEASANT AND COOPERATIVE. THE PT IS UP IND IN HER ROOM. THE PT HAS REPORTED SOME CONTINUOS MILD CHEST PAIN/PRESSURE T/O THE DAY. PT REPORTED THE PAIN TOLERABLE SO FAR T/O THE DAY. PT APPEARS TO BE BREATHING EASILY ON RA. FAMILY AT THE BEDSIDE T/O THE DAY. NO ADVERSE EVENTS REPORTED ON TELE. CALL LIGHT IN REACH. FAMILY AT THE BEDSIDE.
[2023-03-17 04:28] VITALS: BP 123/62
--- NOTE | 2023-03-17 05:45 | NUR ---
SHIFT SUMMARY PATIENT A/Ox4, CALM, PLEASANT, DAUGHTER AT BEDSIDE. NO C/O PAIN NOR DISCOMFORT STATED THROUGHOUT NIGHT. APPEARES TO BE RESTING WELL IN BED. NO ACUTE CHANGES NOTED OVERNIGHT. BED LOCKED AND IN LOWEST POSITION, CALL LIGHT WITHIN REACH.
[2023-03-17 05:51] LABS: BASOPHILS ABSOLUTE AUTO 0.05 K/mm3 (0.00-0.23); BASOPHILS PERCENT AUTO 1 % (0-2); EOSINOPHILS ABSOLUTE AUTO 0.12 K/mm3 (0.00-0.68); EOSINOPHILS PERCENT AUTO 2 % (0-6); Hematocrit 35.7 % (33.0-51.0); Hemoglobin 11.1 g/dL (11.5-16.0); IMMATURE GRAN ABSOLUTE AUTO 0.02 K/mm3 (0.00-0.10); IMMATURE GRAN PERCENT AUTO 0 % (0-1); LYMPHOCYTES ABSOLUTE AUTO 1.54 K/mm3 (0.84-5.20); LYMPHOCYTES PERCENT AUTO 28 % (21-46); MONOCYTES ABSOLUTE AUTO 0.66 K/mm3 (0.16-1.47); MONOCYTES PERCENT AUTO 12 % (4-13); Mean Corpuscular HGB 29.4 pg (26.0-34.0); Mean Corpuscular HGB Conc 31.1 g/dL (31.5-36.5); Mean Corpuscular Volume 94 fL (80-100); Mean Platelet Volume 11.8 fL (9.1-12.4); NEUTROPHILS ABSOLUTE AUTO 3.21 K/mm3 (1.96-9.15); NEUTROPHILS PERCENT AUTO 57 % (41-73); Platelet Count 145 K/mm3 (150-400); RDW Coefficient Variation 13.6 % (11.7-14.2); RDW Standard Deviation 47.5 fL (35.1-46.3); Red Blood Cell Count 3.78 M/mm3 (3.80-5.20)
[2023-03-17 06:22] LABS: Albumin, Blood 3.1 g/dL (3.4-5.0); Albumin/Globulin Ratio 1.1 (0.8-1.8); Bilirubin, Total 0.4 mg/dL (0.1-1.0); Bun/Creatinine Ratio 15.9 (12.0-20.0); Calcium, Blood 8.6 mg/dL (8.5-10.1); Creatinine, Blood 1.13 mg/dL (0.40-1.00); Globulin, Blood 2.8 g/dL (2.2-4.0); Total Protein, Blood 5.9 g/dL (6.4-8.2)
[2023-03-17 08:07] VITALS: BP 125/65
[2023-03-17 10:07] VITALS: BP 118/60
[2023-03-17 12:00] VITALS: BP 131/63
--- NOTE | 2023-03-17 15:00 | NUR ---
DISCHARGE NOTE- PT WAS GIVEN VERBAL ABND WRITTEN DISCHARGE INSTRUCTIONS AND ACKNOWLEDGED UNDERSTANDING OF THEM. PT GOT HERSELF READY TO GO, IV AND TELE DC'D PRIOR TO DISCHARGE. PT ESCORTED OUT VIA WC BY THE PAINTER BARREL, NO S&S OF DISTRESS NOTED AT THE TIME OF DISCHARGE.
== END 2023-03-17 14:53 | disposition home or self-care (01) ==
LOC: ER 20:03 → MEDS 20:04
PROVIDERS: Emergency Medicine; Family Medicine; ADMIT Internal Medicine
DX: I25.118 Atherosclerotic heart disease of native coronary artery with other forms of angina pectoris (principal); E78.5 Hyperlipidemia, unspecified; E03.9 Hypothyroidism, unspecified; F32.A Depression, unspecified; G20.A1 Parkinson's disease without dyskinesia, without mention of fluctuations; Z95.1 Presence of aortocoronary bypass graft; Z79.82 Long term (current) use of aspirin; Z79.899 Other long term (current) drug therapy
CPT/HCPCS: 36415; 71046; 80053; 84443; 84484; 85025; 93005; 93010; 96372; 96374; 96375; 96376; 99285-25; A9270; C9113; G0378; J1650; J2405; J3010

== ENCOUNTER 2023-11-29 19:03 | Emergency (ER) | payer OTHER ==
[~2023-11-29] VITALS: Ht 170.2 cm; Wt 78.0 kg
[~2023-11-29 19:03] MED LIST changes: +LOSA25 PO
[2023-11-29 19:13] LABS: BASOPHILS ABSOLUTE AUTO 0.04 K/mm3 (0.00-0.23); BASOPHILS PERCENT AUTO 1 % (0-2); EOSINOPHILS ABSOLUTE AUTO 0.11 K/mm3 (0.00-0.68); EOSINOPHILS PERCENT AUTO 2 % (0-6); Hemoglobin 12.7 g/dL (11.5-16.0); IMMATURE GRAN ABSOLUTE AUTO 0.02 K/mm3 (0.00-0.10); IMMATURE GRAN PERCENT AUTO 0 % (0-1); LYMPHOCYTES ABSOLUTE AUTO 1.34 K/mm3 (0.84-5.20); LYMPHOCYTES PERCENT AUTO 24 % (21-46); MONOCYTES ABSOLUTE AUTO 0.64 K/mm3 (0.16-1.47); MONOCYTES PERCENT AUTO 12 % (4-13); Mean Corpuscular HGB Conc 33.4 g/dL (31.5-36.5); Mean Corpuscular Volume 93 fL (80-100); Mean Platelet Volume 11.5 fL (9.1-12.4); NEUTROPHILS ABSOLUTE AUTO 3.38 K/mm3 (1.96-9.15); NEUTROPHILS PERCENT AUTO 61 % (41-73); Platelet Count 161 K/mm3 (150-400); RDW Standard Deviation 44.1 fL (35.1-46.3); White Blood Cell Count 5.53 K/mm3 (4.00-11.30)
[2023-11-29 19:28] LABS: International Normalized Ratio 0.93
[2023-11-29 19:35] LABS: Albumin, Blood 3.6 g/dL (3.4-5.0); Albumin/Globulin Ratio 1.1 (0.8-1.8); Bilirubin, Total 0.4 mg/dL (0.1-1.0); Bun/Creatinine Ratio 22.1 (12.0-20.0); Calcium, Blood 8.7 mg/dL (8.5-10.1); Globulin, Blood 3.2 g/dL (2.2-4.0); Potassium, Blood 4.5 mmol/L (3.5-5.5); Total Protein, Blood 6.8 g/dL (6.4-8.2)
[2023-11-29 22:00] VITALS: BP 163/73
== END 2023-11-29 22:10 | disposition home or self-care (01) ==
LOC: ER 19:03
PROVIDERS: Emergency Medicine
DX: R07.9 Chest pain, unspecified (principal); Z88.8 Allergy status to other drugs, medicaments and biological substances; Z79.899 Other long term (current) drug therapy; Z79.82 Long term (current) use of aspirin
CPT/HCPCS: 71046; 80053; 83690; 84484; 85025; 85610; 93005; 93010; 99285-25

== ENCOUNTER 2023-12-07 16:04 | Emergency (ER) | payer OTHER ==
[~2023-12-07] VITALS: Ht 170.2 cm; Wt 78.0 kg
[2023-12-07 16:23] LABS: BASOPHILS ABSOLUTE AUTO 0.05 K/mm3 (0.00-0.23); BASOPHILS PERCENT AUTO 1 % (0-2); EOSINOPHILS ABSOLUTE AUTO 0.09 K/mm3 (0.00-0.68); EOSINOPHILS PERCENT AUTO 2 % (0-6); Hematocrit 38.4 % (33.0-51.0); Hemoglobin 12.5 g/dL (11.5-16.0); IMMATURE GRAN ABSOLUTE AUTO 0.03 K/mm3 (0.00-0.10); IMMATURE GRAN PERCENT AUTO 1 % (0-1); LYMPHOCYTES ABSOLUTE AUTO 1.02 K/mm3 (0.84-5.20); LYMPHOCYTES PERCENT AUTO 17 % (21-46); MONOCYTES ABSOLUTE AUTO 0.51 K/mm3 (0.16-1.47); MONOCYTES PERCENT AUTO 8 % (4-13); Mean Corpuscular HGB 30.6 pg (26.0-34.0); Mean Corpuscular HGB Conc 32.6 g/dL (31.5-36.5); Mean Corpuscular Volume 94 fL (80-100); Mean Platelet Volume 10.9 fL (9.1-12.4); NEUTROPHILS ABSOLUTE AUTO 4.42 K/mm3 (1.96-9.15); NEUTROPHILS PERCENT AUTO 72 % (41-73); Platelet Count 153 K/mm3 (150-400); RDW Coefficient Variation 12.8 % (11.7-14.2); RDW Standard Deviation 44.2 fL (35.1-46.3); Red Blood Cell Count 4.08 M/mm3 (3.80-5.20); White Blood Cell Count 6.12 K/mm3 (4.00-11.30)
[2023-12-07 16:44] LABS: Albumin, Blood 3.4 g/dL (3.4-5.0); Albumin/Globulin Ratio 1.1 (0.8-1.8); Bilirubin, Total 0.6 mg/dL (0.1-1.0); Bun/Creatinine Ratio 22.5 (12.0-20.0); Calcium, Blood 8.9 mg/dL (8.5-10.1); Creatinine, Blood 0.93 mg/dL (0.40-1.00); Globulin, Blood 3.1 g/dL (2.2-4.0); Potassium, Blood 4.2 mmol/L (3.5-5.5); Total Protein, Blood 6.5 g/dL (6.4-8.2)
[2023-12-07] MEDS ORDERED: Aspirin 325 MG Tab PO ONE (16:45)
[2023-12-07 18:03] LABS: Influenza A, PCR NEGATIVE (NEGATIVE); Influenza B, PCR NEGATIVE (NEGATIVE); Resp Syncytial Virus, PCR NEGATIVE (NEGATIVE); SARS-Cov-2 (COVID-19) PCR, MMC NEGATIVE (NEGATIVE)
[2023-12-07 20:30] VITALS: BP 120/87
== END 2023-12-07 22:48 | disposition home or self-care (01) ==
LOC: ER 16:04
PROVIDERS: Emergency Medicine; Student in an Organized Health Care Education/Training Program
DX: R07.9 Chest pain, unspecified (principal); Z88.8 Allergy status to other drugs, medicaments and biological substances; Z79.899 Other long term (current) drug therapy; Z79.82 Long term (current) use of aspirin; I25.10 Atherosclerotic heart disease of native coronary artery without angina pectoris; E03.9 Hypothyroidism, unspecified; E78.5 Hyperlipidemia, unspecified
CPT/HCPCS: 0241U; 71045; 80053; 83880; 84484; 85025; 93005; 93010; 99285-25; A9270

== ENCOUNTER 2024-02-02 06:26 | Day surgery (SDC) | payer OTHER ==
[~2024-02-02] VITALS: Ht 170.2 cm; Wt 77.6 kg
[2024-02-02] VITALS (14 sets, daily range): BP systolic 103–182; BP diastolic 56–84
[2024-02-02] MEDS ORDERED: NS 1,000 ML IV ONE ×2 (06:54→07:17)
[2024-02-02] MEDS ORDERED: NS 250 ML IV ONE (06:54)
[2024-02-02] MEDS ORDERED: Heparin Sodium 1000 Units/ML 10ML MDV ONE (06:54)
[2024-02-02] MEDS ORDERED: NiCARdipine HCL 1,000 MCG/5 ML SYR ONE (06:55)
[2024-02-02] MEDS ORDERED: Nitroglycerin 2 MG/20 ML BTL ONE (06:55)
[2024-02-02] MEDS ORDERED: ALDACTONE25 MG PO (07:03)
[2024-02-02] MEDS ORDERED: FentaNYL Citrate 50 MCG/ML 2 ML Injection ONE (07:16)
[2024-02-02] MEDS ORDERED: Midazolam HCl 1MG / ML 2ML Vial ONE (07:17)
--- NOTE | 2024-02-02 10:45 | NUR ---
11cc AIR REMOVED FROM L RADIAL TR BAND. NEG BLEEDING OR SWELLING. PT AMB TO BATHROOM /S DIFFICULTY.
--- NOTE | 2024-02-02 11:30 | NUR ---
PATIENT DISCHARGED HOME AT THIS TIME. DISCHARGE INSTRUCTIONS REVIEWED WITH PATIENT. ALL QUESTIONS WERE ANSWERED. DAUGHTER AT BEDSIDE. PIV REMOVED WITHTOUT DIFFICULTY, CATHETER INTACT. TR BAND REMOVED, CLOTH DOT AND ARM BOARD IN PLACE. RADIAL SITE CARE REVIEWED. VSS ON RA. DAUGHTER PRESENT TO TRANSPORTATION HOME
== END 2024-02-02 11:30 | disposition home or self-care (01) ==
LOC: MHTC 06:26
DX: I25.810 Atherosclerosis of coronary artery bypass graft(s) without angina pectoris (principal); R94.39 Abnormal result of other cardiovascular function study; E03.9 Hypothyroidism, unspecified; F32.9 Major depressive disorder, single episode, unspecified; E78.5 Hyperlipidemia, unspecified; I25.2 Old myocardial infarction; E78.00 Pure hypercholesterolemia, unspecified; G20.A1 Parkinson's disease without dyskinesia, without mention of fluctuations; K21.9 Gastro-esophageal reflux disease without esophagitis; I12.9 Hypertensive chronic kidney disease with stage 1 through stage 4 chronic kidney disease, or unspecified chronic kidney disease; N18.31 Chronic kidney disease, stage 3a; Z79.899 Other long term (current) drug therapy; Z88.5 Allergy status to narcotic agent; Z88.8 Allergy status to other drugs, medicaments and biological substances; Z95.1 Presence of aortocoronary bypass graft
CPT/HCPCS: 76937; 85347; 93455; 93571; 99152; 99153; A9270; C1769; C1887; C1894; J1644; J2250; J3010; J7030; J7050; Q9967